=== PATIENT | male | born 1935 ===

== ENCOUNTER 2021-05-07 19:43 | Emergency (ER) | payer SELFPAY ==
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
[2021-05-07 21:08] LABS: ANION GAP 14.3 mEq/L (7-13)
[2021-05-07 21:21] LABS: CORONAVIRUS COVID-19 NAA NEGATIVE (NEGATIVE)
== END 2021-05-07 21:50 | disposition home or self-care (01) ==
LOC: DL.ED 19:43
DX: R56.9 Unspecified convulsions (principal); I49.3 Ventricular premature depolarization; Z79.899 Other long term (current) drug therapy; Z20.822 Contact with and (suspected) exposure to COVID-19
CPT/HCPCS: 0240U; 36415; 80053; 83605; 84484; 85025; 87040; 93005; 99284